=== PATIENT | female | born 1970 | race Asian ===

== ENCOUNTER → 2018-08-31 | Outpatient (CLI) | payer OTHER ==
[~2018-08-31] MED LIST: AMIT50 PO; CALACE667G PO; CALC.25 PO; CALCIUM 500 +1 EAC3 PO; DIPATR PO; LEVSOD88 PO; METCAR500 PO; POTA10T PO; PROM25 PO; RANI150 PO; Zantac150 MG PO; Zofran Odt8 MG SL
[2018-08-31 10:28] LABS: BASOPHILS ABSOLUTE AUTO 0.06 K/mm3 (0.00-0.23); BASOPHILS PERCENT AUTO 1 % (0-2); EOSINOPHILS ABSOLUTE AUTO 0.03 K/mm3 (0.00-0.68); EOSINOPHILS PERCENT AUTO 0 % (0-6); Hematocrit 46.8 % (33.0-51.0); Hemoglobin 15.9 g/dL (11.5-16.0); IMMATURE GRAN ABSOLUTE AUTO 0.05 K/mm3 (0.00-0.10); IMMATURE GRAN PERCENT AUTO 1 % (0-1); LYMPHOCYTES ABSOLUTE AUTO 0.59 K/mm3 (0.84-5.20); LYMPHOCYTES PERCENT AUTO 6 % (21-46); MONOCYTES ABSOLUTE AUTO 0.52 K/mm3 (0.16-1.47); MONOCYTES PERCENT AUTO 5 % (4-13); Mean Corpuscular HGB 28.2 pg (26.0-34.0); Mean Corpuscular Volume 83 fL (80-100); NEUTROPHILS ABSOLUTE AUTO 8.98 K/mm3 (1.96-9.15); NEUTROPHILS PERCENT AUTO 88 % (41-73); Platelet Count 394 K/mm3 (150-400); RDW Coefficient Variation 13.8 % (11.7-14.2); RDW Standard Deviation 41.5 fL (35.1-46.3); Red Blood Cell Count 5.64 M/mm3 (3.80-5.20); White Blood Cell Count 10.23 K/mm3 (4.00-11.30)
[2018-08-31 10:38] LABS: Albumin, Blood 4.4 g/dL (3.4-5.0); Albumin/Globulin Ratio 0.9 (0.8-1.8); Bilirubin, Total 0.4 mg/dL (0.1-1.0); Bun/Creatinine Ratio 12.9 (12.0-20.0); Creatinine, Blood 1.78 mg/dL (0.40-1.00); Globulin, Blood 5.1 g/dL (2.2-4.0); Potassium, Blood 4.5 mmol/L (3.5-5.5); Total Protein, Blood 9.5 g/dL (6.4-8.2)
== END ==
LOC: LAB SHORT 10:23 → LAB EV 10:23
PROVIDERS: Emergency Medicine
DX: R11.2 Nausea with vomiting, unspecified (principal)
CPT/HCPCS: 80053; 85025

== ENCOUNTER 2018-09-02 20:34 | Inpatient (IN) | payer OTHER ==
[~2018-09-02] VITALS: Ht 170.2 cm; Wt 65.0 kg
[~2018-09-02 20:34] MED LIST changes: -CALCIUM 500 +1 EAC3 PO; -POTA10T PO
[2018-09-02 21:26] LABS: BASOPHILS ABSOLUTE AUTO 0.06 K/mm3 (0.00-0.23); BASOPHILS PERCENT AUTO 1 % (0-2); EOSINOPHILS ABSOLUTE AUTO 0.48 K/mm3 (0.00-0.68); EOSINOPHILS PERCENT AUTO 8 % (0-6); Hematocrit 38.3 % (33.0-51.0); Hemoglobin 12.7 g/dL (11.5-16.0); IMMATURE GRAN ABSOLUTE AUTO 0.02 K/mm3 (0.00-0.10); IMMATURE GRAN PERCENT AUTO 0 % (0-1); LYMPHOCYTES PERCENT AUTO 33 % (21-46); MONOCYTES PERCENT AUTO 12 % (4-13); Mean Corpuscular HGB Conc 33.2 g/dL (31.5-36.5); Mean Corpuscular Volume 85 fL (80-100); Mean Platelet Volume 10.5 fL (9.1-12.4); NEUTROPHILS ABSOLUTE AUTO 2.82 K/mm3 (1.96-9.15); NEUTROPHILS PERCENT AUTO 46 % (41-73); Platelet Count 331 K/mm3 (150-400); RDW Coefficient Variation 13.6 % (11.7-14.2); RDW Standard Deviation 42.4 fL (35.1-46.3); Red Blood Cell Count 4.53 M/mm3 (3.80-5.20); White Blood Cell Count 6.08 K/mm3 (4.00-11.30)
[2018-09-02 21:46] LABS: Free Thyroxine 1.03 ng/dL (0.70-1.60); Magnesium, Blood 1.5 mg/dL (1.6-2.4)
[2018-09-02 21:50] LABS: Thyroid Stimulating Hormone 0.651 uIU/mL (0.360-4.800)
[2018-09-02 22:06] LABS: Alanine Aminotransfer (ALT/SGP 25 U/L (12-78); Albumin, Blood 3.5 g/dL (3.4-5.0); Albumin/Globulin Ratio 0.9 (0.8-1.8); Alk Phos 57 U/L (50-136); Anion Gap 8 mmol/L (6-16); Aspartate Aminotrans (AST/SGOT 20 U/L (12-37); Bilirubin, Total 0.2 mg/dL (0.1-1.0); Blood Urea Nitrogen 12 mg/dL (8-24); CO2, Blood 24 mmol/L (21-32); Calcium, Blood 5.5 mg/dL (8.5-10.1); Chloride, Blood 111 mmol/L (98-108); Creatinine, Blood 0.93 mg/dL (0.40-1.00); Globulin, Blood 4.1 g/dL (2.2-4.0); Glomerular Filtration Rate >60 (60-); Glucose, Blood 90 mg/dL (70-99); Potassium, Blood 3.7 mmol/L (3.5-5.5); Sodium, Blood 143 mmol/L (136-145); Total Protein, Blood 7.6 g/dL (6.4-8.2)
[2018-09-03] MEDS ORDERED: POTA10T PO (01:36)
--- NOTE | 2018-09-03 04:59 | NUR ---
Shift summary: Pt admitted around midnight last pm with hypocalcemia of 5.5. Pt had recieved calcium and magnesium before coming to the floor and stated she was now feeling much better. Pt started on iv fluids and potassium phosphate and put on tele. Sinus tach with heart rate of 105. Pt ambulatory. at bedside.
[2018-09-03 05:22] LABS: Hematocrit 37.2 % (33.0-51.0); Hemoglobin 12.3 g/dL (11.5-16.0); Mean Corpuscular HGB 27.5 pg (26.0-34.0); Mean Corpuscular HGB Conc 33.1 g/dL (31.5-36.5); Mean Corpuscular Volume 83 fL (80-100); Mean Platelet Volume 10.8 fL (9.1-12.4); Platelet Count 367 K/mm3 (150-400); RDW Coefficient Variation 13.5 % (11.7-14.2); RDW Standard Deviation 41.1 fL (35.1-46.3); Red Blood Cell Count 4.47 M/mm3 (3.80-5.20); White Blood Cell Count 5.77 K/mm3 (4.00-11.30)
[2018-09-03 05:25] LABS: Adenovirus F 40/41 Not Detected (NOT DETECT); Astrovirus Not Detected (NOT DETECT); Campylobacter Sp Not Detected (NOT DETECT); Cryptosporidium Not Detected (NOT DETECT); Cyclospora Cayetanensis Not Detected (NOT DETECT); E. Coli O157 Not Detected (NOT DETECT); Entamoeba Histolytica Not Detected (NOT DETECT); Enteroaggregative E. coli-EAEC Not Detected (NOT DETECT); Enteropathogenic E. coli-EPEC Not Detected (NOT DETECT); Enterotoxigenic E. coli-ETEC Not Detected (NOT DETECT); Giardia Lamblia Not Detected (NOT DETECT); Norovirus GI/GII Not Detected (NOT DETECT); Plesiomonas Shigelloides Not Detected (NOT DETECT); Rotavirus A Detected (NOT DETECT); Salmonella Sp Not Detected (NOT DETECT); Sapovirus Not Detected (NOT DETECT); Shiga Toxin-prod E. coli-STEC Not Detected (NOT DETECT); Shigella/Enteroin E. coli-EIEC Not Detected (NOT DETECT); Vibrio Cholerae Not Detected (NOT DETECT); Vibrio Sp Not Detected (NOT DETECT); Yersinia Enterocolitica Not Detected (NOT DETECT)
[2018-09-03 05:42] LABS: Alanine Aminotransfer (ALT/SGP 23 U/L (12-78); Albumin, Blood 3.5 g/dL (3.4-5.0); Albumin/Globulin Ratio 0.9 (0.8-1.8); Alk Phos 55 U/L (50-136); Anion Gap 10 mmol/L (6-16); Aspartate Aminotrans (AST/SGOT 18 U/L (12-37); Bilirubin, Total 0.3 mg/dL (0.1-1.0); Blood Urea Nitrogen 9 mg/dL (8-24); Bun/Creatinine Ratio 10.2 (12.0-20.0); CO2, Blood 22 mmol/L (21-32); Calcium, Blood 6.1 mg/dL (8.5-10.1); Chloride, Blood 111 mmol/L (98-108); Creatinine, Blood 0.88 mg/dL (0.40-1.00); Glomerular Filtration Rate >60 (60-); Glucose, Blood 97 mg/dL (70-99); Potassium, Blood 3.6 mmol/L (3.5-5.5); Sodium, Blood 143 mmol/L (136-145); Total Protein, Blood 7.5 g/dL (6.4-8.2)
--- NOTE | 2018-09-03 07:12 | NUR ---
ASSUMED CARE: PT RESTING QUIETLY AT THIS TIME. AT BEDSIDE. NO ACUTE NEEDS OR CONCERNS AT THIS TIME.
--- NOTE | 2018-09-03 17:22 | NUR ---
PT STATES SHE IS STILL HAVING HEART BURN THAT HAS NOT GOTTEN MUCH BETTER AFTER 2 DOSES OF TUMS. TELE STATES NO MAJOR CHANGES. VSS. PT DENIES PAIN IN HAND/ARM, NAUSEA OR FURTHER NUMBNESS AND TINGLING. CALL TO DR ROGER. NEW ORDER FOR PROTONIX AND TO KEEP PEPCID WELL.
--- NOTE | 2018-09-03 17:36 | NUR ---
SHIFT SUMMARY: PT HAS BEEN RECEIVING IV AND PO SUPPLEMENTS T/O DAY FOR HYPOCALCEMIA. PLAN IS TO REPLINISH CALCIUM AND CONTINUE TO CHECK VALUE. POSSIBLE DC TOMORROW IF IMPROVED. DR ROGER AWARE OF PT'S C/O HEART BURN AND HAS ORDERED FURTHER MEDS FOR THIS WELL. NO FURTHER NEEDS OR CHANGES NOTED
--- NOTE | 2018-09-04 04:09 | NUR ---
NOC SHIFT SUMMARY PT HAS BEEN PLEASANT AND COOPERATIVE WITH CARE THIS NIGHT. IN ROOM. VSS. AAOX4. RESP EVEN AND UNLABORED. TELE SHOWS NSR. NO COMPLAINTS OF TETANY. HAS NOT COMPLAINED OF HEARTBURN SINCE EVENING MED PASS. CURRENTLY SLEEPING AND APPEARS IN NO ACUTE DISTRESS. WILL CONTINUE TO MONITOR.
[2018-09-04 08:21] LABS: Anion Gap 8 mmol/L (6-16); Blood Urea Nitrogen 10 mg/dL (8-24); Bun/Creatinine Ratio 10.8 (12.0-20.0); CO2, Blood 24 mmol/L (21-32); Chloride, Blood 112 mmol/L (98-108); Creatinine, Blood 0.93 mg/dL (0.40-1.00); Glomerular Filtration Rate >60 (60-); Glucose, Blood 94 mg/dL (70-99); Magnesium, Blood 1.8 mg/dL (1.6-2.4); Potassium, Blood 3.4 mmol/L (3.5-5.5); Sodium, Blood 144 mmol/L (136-145)
[2018-09-04] MEDS ORDERED: CALCIUM 500 +1 EAC3 PO (12:20)
--- NOTE | 2018-09-04 12:41 | NUR ---
PATIENT D/C'D TO HOME WITH . RX MEDICATIONS FAXED TO [facility]. D/C INSTRUCTIONS AND EDUCATION DISCUSSED WITH PATIENT AND COPY PROVIDED. PATIENT DENIES ANY FURTHER QUESTIONS OR CONCERNS.
== END 2018-09-04 12:54 | disposition home or self-care (01) | DRG 644 ==
LOC: ER 20:34 → MEDS 20:35 → ENPENDDIS 09-04 11:22 → MEDS 09-04 12:54
PROVIDERS: Emergency Medicine; Internal Medicine; ADMIT Internal Medicine
DX: E20.9 Hypoparathyroidism, unspecified (principal); A08.0 Rotaviral enteritis; Z90.89 Acquired absence of other organs; K21.9 Gastro-esophageal reflux disease without esophagitis; E89.0 Postprocedural hypothyroidism; E86.0 Dehydration
CPT/HCPCS: 36415; 80048; 80053; 82330; 83735; 83970; 84100; 84439; 84443; 85025; 85027; 87507; 93005; 93010; 96365; 96368; 96375; 99285-25; J0610; J1650; J3475; J7030; J7060

== ENCOUNTER → 2018-09-19 | Outpatient (CLI) | payer OTHER ==
[~2018-09-19] MED LIST changes: +CALCIUM 500 +1 EAC3 PO; +POTA10T PO
== END ==
LOC: LAB SHORT 11:56 → LAB 11:56
DX: E20.9 Hypoparathyroidism, unspecified (principal); R10.13 Epigastric pain
CPT/HCPCS: 87338